=== PATIENT | female | born 1940 | race African-American/Black ===

== ENCOUNTER 2020-04-01 05:40 | Inpatient (IN) | payer MEDICAID, OTHER ==
[~2020-04-01] VITALS: Ht 165.1 cm; Wt 54.5 kg
[2020-04-01 12:30] LABS: Basophils # (auto) 0 10 ^3/uL (0-0.2); Basophils % (auto) 0.1 % (0.0-2.0); Eosinophils # (auto) 0 10 ^3/uL (0-0.8); Hematocrit 43.1 % (36.0-46.0); Hemoglobin 14.6 g/dL (12.2-16.2); Lymphocytes # (auto) 0.8 10 ^3/uL (0.4-5.4); Lymphocytes % (auto) 7.5 % (10.0-50.0); Mean Corpuscular Hemoglobin 30.8 pg (28.0-32.0); Mean Corpuscular Hgb Conc. 33.9 g/dL (32.0-36.0); Mean Corpuscular Volume 90.8 fL (80.0-100.0); Monocytes # (auto) 0.5 10 ^3/uL (0-1.3); Monocytes % (auto) 5.3 % (0.0-12.0); Neutrophils # (auto) 8.7 10 ^3/uL (1.6-8.6); Neutrophils % (auto) 87.1 % (37.0-80.0); Platelet Count (auto) 224 10^3/uL (140-450); Red Blood Cells 4.75 10^6/uL (4.0-5.20); Red Cell Distribution Width 14.5 % (11.8-14.3)
[2020-04-01 12:50] LABS: INR 1.13 (0.9-1.15)
[2020-04-01 13:21] LABS: Chloride 106 mmol/L (98-107); Potassium 3.5 mmol/L (3.5-5.1); Sodium 140 mmol/L (136-145)
[2020-04-01 13:34] LABS: Alanine Aminotransferase 21 U/L (13-56); Albumin 3.9 g/dL (3.4-5.0); Alkaline Phosphatase 109 U/L (45-117); Anion Gap 13 (5-15); Aspartate Aminotransferase 19 U/L (15-37); Bilirubin, Total 0.8 mg/dL (0.2-1.0); Blood Alcohol < 3.0 mg/dL (0-5); Blood Urea Nitrogen 19 mg/dL (7-18); Calcium 9.5 mg/dL (8.5-10.1); Carbon Dioxide 21 mmol/L (21-32); GFR African American 73 mL/min; GFR Non-African American 60 mL/min; Glucose 93 mg/dL (74-106); Magnesium 2.2 mg/dL (1.6-2.6); Total Protein 8.1 g/dL (6.4-8.2)
[2020-04-01] MEDS ORDERED: NITROGLYCERIN 0.4 MG SL TAB SL PRN (16:15)
[2020-04-01] MEDS ORDERED: MORPHINE SULF INJ 2 MG/ML SYRINGE 1ML IV PRN (16:15)
[2020-04-01] MEDS ORDERED: SODIUM CHLORIDE 0.9% 1,000 ML IV ONE (16:15)
[2020-04-03 05:51] LABS: Basophils # (auto) 0.1 10 ^3/uL (0-0.2); Eosinophils # (auto) 0.2 10 ^3/uL (0-0.8); Eosinophils % (auto) 3.1 % (0.0-7.0); Hematocrit 39.7 % (36.0-46.0); Hemoglobin 13.2 g/dL (12.2-16.2); Lymphocytes # (auto) 1.2 10 ^3/uL (0.4-5.4); Lymphocytes % (auto) 21.8 % (10.0-50.0); Mean Corpuscular Hemoglobin 30.4 pg (28.0-32.0); Mean Corpuscular Hgb Conc. 33.3 g/dL (32.0-36.0); Mean Corpuscular Volume 91.3 fL (80.0-100.0); Monocytes # (auto) 0.4 10 ^3/uL (0-1.3); Monocytes % (auto) 7.9 % (0.0-12.0); Neutrophils # (auto) 3.6 10 ^3/uL (1.6-8.6); Neutrophils % (auto) 66.2 % (37.0-80.0); Platelet Count (auto) 195 10^3/uL (140-450); Red Blood Cells 4.34 10^6/uL (4.0-5.20); Red Cell Distribution Width 14.4 % (11.8-14.3); White Blood Cell 5.5 10^3/uL (4.4-10.8)
[2020-04-03 06:11] LABS: Potassium 3.5 mmol/L (3.5-5.1)
[2020-04-03 06:20] LABS: Albumin 3.2 g/dL (3.4-5.0); BUN/Creatinine Ratio 17.6; Bilirubin, Total 0.9 mg/dL (0.2-1.0); Calcium 9.1 mg/dL (8.5-10.1); Total Protein 7.2 g/dL (6.4-8.2)
[2020-04-03] MEDS ORDERED: ACETAMINOPHEN 325 MG TAB PO PRN (15:15)
[2020-04-04 06:15] LABS: Basophils # (auto) 0 10 ^3/uL (0-0.2); Basophils % (auto) 0.6 % (0.0-2.0); Eosinophils # (auto) 0.2 10 ^3/uL (0-0.8); Eosinophils % (auto) 2.9 % (0.0-7.0); Hematocrit 38.7 % (36.0-46.0); Hemoglobin 13.2 g/dL (12.2-16.2); Lymphocytes # (auto) 1.2 10 ^3/uL (0.4-5.4); Lymphocytes % (auto) 23.2 % (10.0-50.0); Mean Corpuscular Hgb Conc. 34.1 g/dL (32.0-36.0); Mean Corpuscular Volume 90.9 fL (80.0-100.0); Monocytes # (auto) 0.4 10 ^3/uL (0-1.3); Monocytes % (auto) 7.9 % (0.0-12.0); Neutrophils # (auto) 3.5 10 ^3/uL (1.6-8.6); Neutrophils % (auto) 65.4 % (37.0-80.0); Nucleated Red Blood Cells % 0.1 %; Platelet Count (auto) 180 10^3/uL (140-450); Red Blood Cells 4.25 10^6/uL (4.0-5.20); Red Cell Distribution Width 14.1 % (11.8-14.3); White Blood Cell 5.3 10^3/uL (4.4-10.8)
[2020-04-04 08:02] LABS: BUN/Creatinine Ratio 16.9; Calcium 8.5 mg/dL (8.5-10.1); Potassium 3.5 mmol/L (3.5-5.1)
[2020-04-05 09:24] LABS: Basophils # (auto) 0 10 ^3/uL (0-0.2); Basophils % (auto) 0.8 % (0.0-2.0); Eosinophils # (auto) 0.2 10 ^3/uL (0-0.8); Eosinophils % (auto) 4.4 % (0.0-7.0); Hematocrit 38.9 % (36.0-46.0); Hemoglobin 12.8 g/dL (12.2-16.2); Lymphocytes # (auto) 0.9 10 ^3/uL (0.4-5.4); Lymphocytes % (auto) 21.9 % (10.0-50.0); Mean Corpuscular Hgb Conc. 32.9 g/dL (32.0-36.0); Mean Corpuscular Volume 91.1 fL (80.0-100.0); Monocytes # (auto) 0.4 10 ^3/uL (0-1.3); Monocytes % (auto) 9.8 % (0.0-12.0); Neutrophils # (auto) 2.7 10 ^3/uL (1.6-8.6); Neutrophils % (auto) 63.1 % (37.0-80.0); Nucleated Red Blood Cells % 0.2 %; Platelet Count (auto) 208 10^3/uL (140-450); Red Blood Cells 4.26 10^6/uL (4.0-5.20); Red Cell Distribution Width 14.1 % (11.8-14.3); White Blood Cell 4.3 10^3/uL (4.4-10.8)
[2020-04-05 09:32] LABS: Potassium 3.7 mmol/L (3.5-5.1)
[2020-04-05 09:36] LABS: BUN/Creatinine Ratio 16.3
[2020-04-05 14:49] LABS: CRP High Sensitivity 0.67 mg/dL (< 0.3)
[2020-04-10 22:50] VITALS: BP 136/67
[2020-04-11] VITALS: BP_SYST 132; BP_SYST 136; BP_DIAS 67; BP_DIAS 68
[2020-04-11 08:00] VITALS: BP 111/56
[2020-04-11 16:00] VITALS: BP 105/58
[2020-04-12] VITALS: BP 128/67
[2020-04-12 08:00] VITALS: BP 104/62
[2020-04-12 16:00] VITALS: BP 120/64
[2020-04-13] VITALS: BP 111/65
[2020-04-13 08:00] VITALS: BP 130/67
[2020-04-13 13:00] VITALS: BP 103/67
[2020-04-13 16:00] VITALS: BP_SYST 103; BP_SYST 109; BP_DIAS 57; BP_DIAS 67
[2020-04-13] MEDS ORDERED: ZINC SULFATE 220mg CAP or TAB PO ONE (19:45)
[2020-04-13] MEDS ORDERED: CHOLECALCIFEROL (VITD3) 2,000 UNIT CAP/TAB PO ONE (19:45)
[2020-04-13] MEDS ORDERED: ENOXAPARIN SOD 40 MG/0.4 ML SYRINGE SC ONE (19:45)
[2020-04-13] MEDS ORDERED: levoFLOXacin 500 MG TAB PO ONE (19:45)
[2020-04-13] MEDS ORDERED: REMDESIVIR PER PHARMACY 0 ML IV SCH (19:45)
[2020-04-13] MEDS ORDERED: ACETAMINOPHEN 325 MG TAB PO PRN (19:45)
[2020-04-13 23:04] LABS: Albumin 2.8 g/dL (3.4-5.0); BUN/Creatinine Ratio 8.3; Calcium 8.3 mg/dL (8.5-10.1); Potassium 4.4 mmol/L (3.5-5.1)
[2020-04-13 23:07] LABS: Bilirubin, Total 0.5 mg/dL (0.2-1.0); Total Protein 7.2 g/dL (6.4-8.2)
[2020-04-14] VITALS: BP 114/68
[2020-04-14 08:00] VITALS: BP 131/79
[2020-04-14] MEDS: ZINC SULFATE 220mg CAP or TAB PO SCH (08:42)
[2020-04-14] MEDS: CHOLECALCIFEROL (VITD3) 2,000 UNIT CAP/TAB PO SCH (08:42)
[2020-04-14] MEDS ORDERED: REMDESIVIR 200 MG in NS 210ml LOADING DOSE ADULT IV ONE (15:00)
[2020-04-14 16:00] VITALS: BP 123/70
[2020-04-14] MEDS ORDERED: predniSONE 20 MG TAB PO ONE (19:45)
[2020-04-14] MEDS: ENOXAPARIN SOD 40 MG/0.4 ML SYRINGE SC SCH (21:00)
[2020-04-14] MEDS: levoFLOXacin 500 MG TAB PO SCH (21:00)
[2020-04-15] VITALS: BP 114/71
[2020-04-15 08:00] VITALS: BP 135/82
[2020-04-15] MEDS: ZINC SULFATE 220mg CAP or TAB PO SCH (10:03)
[2020-04-15] MEDS: predniSONE 20 MG TAB PO SCH (10:03)
[2020-04-15] MEDS: CHOLECALCIFEROL (VITD3) 2,000 UNIT CAP/TAB PO SCH (10:03)
[2020-04-15] MEDS ORDERED: REMDESIVIR 100mg 100 MG in SODIUM CHL 0.9% 230 ML IV SCH (15:00)
[2020-04-15 16:00] VITALS: BP 129/79
[2020-04-15] MEDS: ENOXAPARIN SOD 40 MG/0.4 ML SYRINGE SC SCH ×2 (21:19→21:21)
[2020-04-15] MEDS: levoFLOXacin 500 MG TAB PO SCH (21:19)
[2020-04-16] MEDS: predniSONE 20 MG TAB PO SCH (09:13)
[2020-04-16] MEDS: ZINC SULFATE 220mg CAP or TAB PO SCH (09:13)
[2020-04-16] MEDS: CHOLECALCIFEROL (VITD3) 2,000 UNIT CAP/TAB PO SCH (09:14)
[2020-04-16] MEDS: ENOXAPARIN SOD 40 MG/0.4 ML SYRINGE SC SCH (21:10)
[2020-04-16] MEDS: levoFLOXacin 500 MG TAB PO SCH (21:10)
[2020-04-17] MEDS: predniSONE 20 MG TAB PO SCH (10:00)
[2020-04-17] MEDS: CHOLECALCIFEROL (VITD3) 2,000 UNIT CAP/TAB PO SCH (10:00)
[2020-04-17] MEDS: ZINC SULFATE 220mg CAP or TAB PO SCH (10:00)
[2020-04-17] MEDS ORDERED: OLANZapine 5 MG TAB PO ONE (12:15)
[2020-04-17 16:00] VITALS: BP 139/87
[2020-04-17] MEDS: ENOXAPARIN SOD 40 MG/0.4 ML SYRINGE SC SCH (22:00)
[2020-04-17] MEDS: levoFLOXacin 500 MG TAB PO SCH (22:39)
[2020-04-18] MEDS: ZINC SULFATE 220mg CAP or TAB PO SCH (10:00)
[2020-04-18] MEDS: OLANZapine 5 MG TAB PO SCH (10:00)
[2020-04-18] MEDS ORDERED: predniSONE 20 MG TAB PO SCH (10:00)
[2020-04-18] MEDS: CHOLECALCIFEROL (VITD3) 2,000 UNIT CAP/TAB PO SCH (10:00)
[2020-04-18] MEDS: ENOXAPARIN SOD 40 MG/0.4 ML SYRINGE SC SCH (22:31)
[2020-04-18] MEDS: levoFLOXacin 500 MG TAB PO SCH (22:31)
[2020-04-19] MEDS: ZINC SULFATE 220mg CAP or TAB PO SCH (09:02)
[2020-04-19] MEDS: CHOLECALCIFEROL (VITD3) 2,000 UNIT CAP/TAB PO SCH (09:02)
[2020-04-19] MEDS: OLANZapine 5 MG TAB PO SCH (09:02)
[2020-04-19] MEDS: levoFLOXacin 500 MG TAB PO SCH (21:18)
[2020-04-19] MEDS: ENOXAPARIN SOD 40 MG/0.4 ML SYRINGE SC SCH (21:21)
[2020-04-20 00:30] VITALS: BP 121/76
[2020-04-20] MEDS: ZINC SULFATE 220mg CAP or TAB PO SCH (09:37)
[2020-04-20] MEDS: CHOLECALCIFEROL (VITD3) 2,000 UNIT CAP/TAB PO SCH (09:37)
[2020-04-20] MEDS: OLANZapine 5 MG TAB PO SCH (09:37)
[2020-04-20] MEDS: levoFLOXacin 500 MG TAB PO SCH (22:01)
[2020-04-20] MEDS: ENOXAPARIN SOD 40 MG/0.4 ML SYRINGE SC SCH (22:01)
[2020-04-21] MEDS: ZINC SULFATE 220mg CAP or TAB PO SCH (10:19)
[2020-04-21] MEDS: CHOLECALCIFEROL (VITD3) 2,000 UNIT CAP/TAB PO SCH (10:19)
[2020-04-21] MEDS: OLANZapine 5 MG TAB PO SCH (10:21)
[2020-04-21] MEDS: ENOXAPARIN SOD 40 MG/0.4 ML SYRINGE SC SCH (21:58)
[2020-04-22] VITALS: BP 134/62
[2020-04-22 08:00] VITALS: BP 139/63
[2020-04-22] MEDS: ZINC SULFATE 220mg CAP or TAB PO SCH (09:51)
[2020-04-22] MEDS: CHOLECALCIFEROL (VITD3) 2,000 UNIT CAP/TAB PO SCH (09:52)
[2020-04-22] MEDS: OLANZapine 5 MG TAB PO SCH (09:52)
[2020-04-22] MEDS: ENOXAPARIN SOD 40 MG/0.4 ML SYRINGE SC SCH (09:53)
[2020-04-22 16:00] VITALS: BP 136/69
[2020-04-23] VITALS: BP 131/79
[2020-04-23 08:00] VITALS: BP 146/81
[2020-04-23] MEDS: OLANZapine 5 MG TAB PO SCH (09:04)
[2020-04-23] MEDS: CHOLECALCIFEROL (VITD3) 2,000 UNIT CAP/TAB PO SCH (09:04)
[2020-04-23] MEDS: ZINC SULFATE 220mg CAP or TAB PO SCH (09:04)
[2020-04-23 16:00] VITALS: BP 108/70
[2020-04-24] VITALS: BP 110/61
[2020-04-24 08:00] VITALS: BP 111/64
[2020-04-24] MEDS: CHOLECALCIFEROL (VITD3) 2,000 UNIT CAP/TAB PO SCH (10:27)
[2020-04-24] MEDS: ZINC SULFATE 220mg CAP or TAB PO SCH (10:27)
[2020-04-24] MEDS: OLANZapine 5 MG TAB PO SCH (10:27)
[2020-04-24 16:00] VITALS: BP 111/59
[2020-04-25] VITALS: BP 118/62
[2020-04-25 08:00] VITALS: BP 103/49
[2020-04-25] MEDS: CHOLECALCIFEROL (VITD3) 2,000 UNIT CAP/TAB PO SCH (10:23)
[2020-04-25] MEDS: OLANZapine 5 MG TAB PO SCH (10:23)
[2020-04-25 15:53] VITALS: BP 114/60
[2020-04-26] VITALS: BP 118/62
[2020-04-26 08:00] VITALS: BP 115/61
[2020-04-26] MEDS: CHOLECALCIFEROL (VITD3) 2,000 UNIT CAP/TAB PO SCH (09:38)
[2020-04-26] MEDS: OLANZapine 5 MG TAB PO SCH (09:39)
[2020-04-26 16:00] VITALS: BP 119/57
[2020-04-27] VITALS: BP 126/79
[2020-04-27 06:26] LABS: Basophils # (auto) 0 10 ^3/uL (0-0.2); Basophils % (auto) 0.3 % (0.0-2.0); Eosinophils # (auto) 0 10 ^3/uL (0-0.8); Eosinophils % (auto) 0.2 % (0.0-7.0); Hematocrit 37.3 % (36.0-46.0); Hemoglobin 12.7 g/dL (12.2-16.2); Mean Corpuscular Hemoglobin 29.9 pg (28.0-32.0); Mean Corpuscular Volume 87.9 fL (80.0-100.0); Monocytes # (auto) 0.4 10 ^3/uL (0-1.3); Monocytes % (auto) 4.8 % (0.0-12.0); Neutrophils # (auto) 6.9 10 ^3/uL (1.6-8.6); Neutrophils % (auto) 82.7 % (37.0-80.0); Nucleated Red Blood Cells % 0.1 %; Platelet Count (auto) 323 10^3/uL (140-450); Red Blood Cells 4.24 10^6/uL (4.0-5.20); Red Cell Distribution Width 14.4 % (11.8-14.3); White Blood Cell 8.4 10^3/uL (4.4-10.8)
[2020-04-27 06:39] LABS: Potassium 3.9 mmol/L (3.5-5.1)
[2020-04-27 06:46] LABS: Calcium 8.5 mg/dL (8.5-10.1)
[2020-04-27 08:00] VITALS: BP 104/62
[2020-04-27] MEDS: OLANZapine 5 MG TAB PO SCH (10:34)
[2020-04-27] MEDS: CHOLECALCIFEROL (VITD3) 2,000 UNIT CAP/TAB PO SCH (10:34)
[2020-04-27 15:55] VITALS: BP 127/64
[2020-04-28] VITALS: BP_SYST 116; BP_SYST 93; BP_DIAS 57; BP_DIAS 59
[2020-04-28 08:00] VITALS: BP 106/55
[2020-04-28] MEDS: CHOLECALCIFEROL (VITD3) 2,000 UNIT CAP/TAB PO SCH (09:37)
[2020-04-28] MEDS: OLANZapine 5 MG TAB PO SCH (09:37)
[2020-04-28 16:00] VITALS: BP 102/52
[2020-04-29] VITALS: BP 136/74
[2020-04-29 08:00] VITALS: BP 109/67
[2020-04-29 16:00] VITALS: BP 111/59
[2020-04-29] MEDS: CHOLECALCIFEROL (VITD3) 2,000 UNIT CAP/TAB PO SCH (16:39)
[2020-04-29] MEDS: OLANZapine 5 MG TAB PO SCH (16:39)
[2020-04-30] VITALS: BP 120/63
[2020-04-30 08:00] VITALS: BP 122/70
[2020-04-30] MEDS: CHOLECALCIFEROL (VITD3) 2,000 UNIT CAP/TAB PO SCH (09:48)
[2020-04-30] MEDS: OLANZapine 5 MG TAB PO SCH (09:48)
[2020-04-30 16:00] VITALS: BP 122/58
[2020-05-01] VITALS: BP 117/66
[2020-05-01 08:00] VITALS: BP 122/63
[2020-05-01] MEDS: CHOLECALCIFEROL (VITD3) 2,000 UNIT CAP/TAB PO SCH (09:52)
[2020-05-01] MEDS: OLANZapine 5 MG TAB PO SCH (09:52)
[2020-05-01 15:52] VITALS: BP 118/62
[2020-05-02] VITALS: BP 140/69
[2020-05-02 08:00] VITALS: BP 134/62
[2020-05-02] MEDS: OLANZapine 5 MG TAB PO SCH (10:25)
[2020-05-02] MEDS: CHOLECALCIFEROL (VITD3) 2,000 UNIT CAP/TAB PO SCH (10:25)
[2020-05-02 16:00] VITALS: BP 118/70
[2020-05-03] VITALS: BP 124/66
[2020-05-03 08:08] VITALS: BP 112/63
[2020-05-03] MEDS: CHOLECALCIFEROL (VITD3) 2,000 UNIT CAP/TAB PO SCH (10:45)
[2020-05-03] MEDS: OLANZapine 5 MG TAB PO SCH (10:46)
[2020-05-03 14:30] VITALS: BP 112/63
[2020-05-03 16:28] VITALS: BP 115/63
[2020-05-04] VITALS: BP_SYST 122; BP_SYST 124; BP_DIAS 70; BP_DIAS 80
[2020-05-04 08:00] VITALS: BP 115/60
[2020-05-04] MEDS: CHOLECALCIFEROL (VITD3) 2,000 UNIT CAP/TAB PO SCH (09:19)
[2020-05-04] MEDS: OLANZapine 5 MG TAB PO SCH (09:19)
== END 2020-05-04 10:00 | disposition home or self-care (01) | DRG 750 ==
LOC: EDBD 05:40 → ER 05:40 → TELE 16:11 → TELE-EAST 04-10 22:12 → EAST 04-20 17:07 → WEST WING 05-02 11:17
PROVIDERS: ADMIT Nurse Practitioner Acute Care; ATTEND Internal Medicine
PROC: XW033E5 Introduction of Remdesivir Anti-infective into Peripheral Vein, Percutaneous Approach, New Technology Group 5 (ICD-10-PCS; principal; 2020-04-13)
DX: F20.9 Schizophrenia, unspecified (principal); U07.1 COVID-19; F31.9 Bipolar disorder, unspecified; F03.90 Unspecified dementia, unspecified severity, without behavioral disturbance, psychotic disturbance, mood disturbance, and anxiety; J12.82 Pneumonia due to coronavirus disease 2019; G93.40 Encephalopathy, unspecified; R62.7 Adult failure to thrive
CPT/HCPCS: 36415; 70450; 71045; 80048; 80053; 80320; 82728; 82962; 83605; 83615; 83735; 84443; 84484; 85025; 85379; 85610; 85730; 86141; 87040; 87426; 93005; 96360; G0378